=== PATIENT | male | born 1985 | race Caucasian/White ===

== ENCOUNTER 2022-09-12 13:48 | Emergency (ER) | payer SELFPAY ==
[~2022-09-12] VITALS: Ht 177.8 cm; Wt 140.0 kg
[2022-09-12 13:55] VITALS: BP 152/81
[2022-09-12] MEDS ORDERED: DEPAKOTE (13:55)
== END 2022-09-12 14:47 | disposition left against medical advice (07) ==
LOC: ER 13:58
DX: R56.9 Unspecified convulsions (principal); Z53.29 Procedure and treatment not carried out because of patient's decision for other reasons
CPT/HCPCS: 99283